=== PATIENT | female | born 2000 | race Caucasian/White ===

== ENCOUNTER 2024-12-21 16:47 | Emergency (ER) | payer BC ==
[2024-12-21 17:27] VITALS: RESP 16; TEMP 96.8
[2024-12-21] MEDS ORDERED: ZOFRAN ODT 4 MG ONE (17:28)
[2024-12-21] MEDS: ZOFRAN ODT 4 MG PO ONE (17:29)
[2024-12-21 17:49] LABS: Appearance Clear (Clear); Bacteria Rare /HPF (None Seen); Bilirubin Negative (Negative); Blood Negative (Negative); Epithelial Cells Few /HPF (None Seen); Glucose, Urine Negative (Negative); Ketones Trace (Negative); Leukocyte Esterase Trace (Negative); Nitrite Negative (Negative); Protein,Urine Dip Trace (Negative); RBC 0-2 /HPF (0-5); Specific Gravity 1.025 (1.005-1.030)
[2024-12-21 17:54] LABS: HCG URINE TEST NEGATIVE (NEGATIVE)
[2024-12-21] MEDS: Zofran 4 MG/2 ML VIAL IV ONE (18:03)
[2024-12-21] MEDS ORDERED: Sodium Chloride 0.9% 1000 ML 1,000 ML ONE (18:03)
[2024-12-21] MEDS: Sodium Chloride 0.9% 1000 ML 1,000 ML IV STA (18:04)
[2024-12-21 18:06] LABS: Absolute Neutrophil Ct (ANC) 8.38 x10^3/uL (1.56-6.13); BASOPHIL % 0.2 % (0.1-1.2); Basophil (Absolute #) 0.02 x10^3/uL (0.01-0.08); Eosinophil (Absolute #) 0 x10^3/uL (0.04-0.36); Hematocrit 40.4 % (34.1-44.9); Hemoglobin 14.1 g/dL (11.2-15.7); IMMATURE GRAN # 0.02 x10^3u/L (0.001-0.031); IMMATURE GRAN % 0.2 % (0.001-0.429); Lymphocyte (Absolute #) 1.31 x10^3/uL (1.18-3.74); Mean Cell Volume 86.5 fL (79.4-94.8); Mean Corpuscular Hemoglobin 30.2 pg (25.6-32.2); Mean Corpuscular Hgb Concent. 34.9 g/dL (32.2-35.5); Mean Platelet Volume 9.9 fL (9.4-12.3); Monocyte (Absolute #) 0.35 x10^3/uL (0.24-0.86); Monocytes % 3.5 % (4.7-12.5); Neutrophil % 83.1 % (34.0-71.1); Platelet Count 243 x10^3/uL (182-369); Red Blood Count 4.67 x10^6/uL (3.93-5.22); Red Cell Distribution Width 11.4 % (11.7-14.4); White Blood Count 10.1 x10^3/uL (3.98-10.04)
[2024-12-21 18:33] LABS: ALBUMIN 5.3 g/dL (3.5-5.0); ANION GAP 15.8 MEQ/L (5-15); BILIRUBIN,TOTAL 0.7 mg/dL (0.2-1.3); Calcium 9.8 mg/dL (8.4-10.2); Creatinine 1 0.78 mg/dL (0.52-1.04); EST GLOMERULAR FILTRATION RATE 110.1 ML/MIN; Total Protein 7.9 g/dL (6.3-8.2)
[2024-12-21 19:06] VITALS: BP 115/78; PULSE 65; O2SAT 99
--- NOTE | 2024-12-21 19:11 | ERPHSYRPT ---
- History of Present Illness Time Seen by Provider: 12/21/24 19:07 Source: patient Exam Limitations: no limitations Patient Subjective Stated Complaint: pt states that she has been vomiting up acid. pt states that she has an appointment with the [facility] on the . Triage Nursing Assessment: pt ambulated into the er; pt is axo x4; c/o vomiting; pt states 3/10 pain to upper back; abd flat, soft, non tender; active bowel sounds in all quads; c/o N/V, denies diarrhea; skin PDW; no respiratory distress present; vitals wnl Physician History: Patient is a 24-year-old female presents to our ED for evaluation of nausea and vomiting. Patient states is not uncommon for her to experience episodes of nausea and vomiting. Patient states has been vomiting gastric acid. (Patient is currently on Protonix ) she is currently scheduled to follow-up with Dr. Ziegler for these episodes. Patient vomited approximately 10 times prior to arrival. Patient is here for concerns of dehydration and electrolyte abnormality. No active nausea or vomiting during my evaluation. Patient has some mid back discomfort that is not uncommon when she vomits. She otherwise feels well. No abdominal pain. No fever no rash no respiratory complaints. Mother at bedside states patient is otherwise healthy. They voiced no other complaints or concerns at this time. Patient declined pain medication Portions of this note were created with voice recognition technology. There may be grammatical, spelling, punctuation or sound alike errors Timing/Duration: today Severity: moderate Modifying Factors: Improves With: nothing Associated Symptoms: denies symptoms Allergies/Adverse Reactions: No Known Drug Allergies Allergy (Verified 12/21/24 17:01) Home Medications: Escitalopram Oxalate 20 mg PO HS 12/21/24 [History] PANTOPRAZOLE 40 mg Tablet [Protonix 40MG Tablet] 40 mg PO BID 12/21/24 [History] Hx Tetanus, Diphtheria Vaccination/Date Given: Yes Hx Influenza Vaccination/Date Given: No Hx Pneumococcal Vaccination/Date Given: No Travel Risk - International Travel Have you traveled outside of the country in past 3 weeks: No - Emerging Infectious Disease Are you exhibiting symptoms associated with any current EIDs: Yes Symptoms: Vomitting - Review of Systems Constitutional: No Symptoms, No Fever, No Chills Eyes: No Symptoms Ears, Nose, & Throat: No Symptoms Respiratory: No Symptoms, No Cough, No Dyspnea Cardiac: No Symptoms, No Chest Pain, No Edema, No Syncope Abdominal/Gastrointestinal: No Symptoms, No Abdominal Pain, No Nausea, No Vomiting, No Diarrhea Genitourinary Symptoms: No Symptoms, No Dysuria Musculoskeletal: No Symptoms, No Back Pain, No Neck Pain Skin: No Symptoms, No Rash Neurological: No Symptoms, No Dizziness, No Focal Weakness, No Sensory Changes Psychological: No Symptoms Endocrine: No Symptoms Hematologic/Lymphatic: No Symptoms Immunological/Allergic: No Symptoms All Other Systems: Reviewed and Negative - Past Medical History Pertinent Past Medical History: Yes GI Medical History: GERD Psycho-Social History: Depression - Past Surgical History Past Surgical History: Yes Other Surgical History: tonsils - Female History Hx Now: No - Social History Smoking Status: Light tobacco smoker Exposure to second hand smoke: No Drug Use: none - Nursing Vital Signs Nursing Vital Signs: Initial Vital Signs Pulse Rate 64 12/21/24 17:00 Blood Pressure 119/80 12/21/24 17:00 O2 Sat by Pulse Oximetry 98 12/21/24 17:00 Pain Scale Pain Intensity 3 - Physical Exam General Appearance: no apparent distress, alert Eye Exam: PERRL/EOMI, eyes nml inspection Ears, Nose, Throat Exam: normal ENT inspection, TMs normal, pharynx normal, moist mucous membranes Neck Exam: normal inspection, non-tender, supple, full range of motion Respiratory Exam: normal breath sounds, lungs clear, No respiratory distress Cardiovascular Exam: regular rate/rhythm, normal heart sounds, normal peripheral pulses Gastrointestinal/Abdomen Exam: soft, normal bowel sounds, No tenderness, No mass Back Exam: normal inspection, normal range of motion, No CVA tenderness, No vertebral tenderness Extremity Exam: normal inspection, normal range of motion, pelvis stable Neurologic Exam: alert, oriented x 3, cooperative, normal mood/affect, sensation nml, No motor deficits Skin Exam: normal color, warm, dry, No rash Lymphatic Exam: No adenopathy SpO2 Interpretation: normal SpO2: 99 O2 Delivery: Room Air - Course Nursing assessment & vital signs reviewed: Yes Ordered Tests: Active Orders 24 hr Category Date Time Status IV Insertion STAT Care 12/21/24 17:41 Active CBC W DIFF Stat Lab 12/21/24 18:05 Completed CMP Stat Lab 12/21/24 18:05 Completed CULTURE,URINE Stat Lab 12/21/24 17:27 Received HCG QUALITATIVE, URINE Stat Lab 12/21/24 17:27 Completed LIPASE Stat Lab 12/21/24 18:05 Completed UA W/RFX UR CULTURE Stat Lab 12/21/24 17:27 Completed Medication Summary Discontinued Medications Generic Name Dose Route Start Last Admin Trade Name Edward PRN Reason Stop Dose Admin Sodium Chloride 1,000 mls @ 999 mls/hr 12/21/24 17:41 12/21/24 19:06 Sodium Chloride 0.9% 1000 Ml IV 12/21/24 18:41 Infused .Q1H1M STA Infusion Sodium Chloride Confirm 12/21/24 18:03 Sodium Chloride 0.9% 1000 Ml Administered 12/21/24 18:04 Dose 1,000 mls @ ud .ROUTE .STK-MED ONE Ondansetron HCl 4 mg 12/21/24 17:24 12/21/24 17:29 Zofran 4 Mg/Udtablet Orally Disintegrating PO 12/21/24 17:25 4 mg STAT ONE Administration Ondansetron HCl Confirm 12/21/24 17:28 Zofran 4 Mg/Udtablet Orally Disintegrating Administered 12/21/24 17:29 Dose 4 mg .ROUTE .STK-MED ONE Ondansetron HCl 4 mg 12/21/24 17:41 12/21/24 18:03 Ondansetron Hcl 4 Mg/2 Ml Vial IV 12/21/24 17:42 Not Given STAT ONE Lab/Rad Data: Laboratory Result Diagrams 12/21/24 18:05 12/21/24 18:05 Laboratory Results 12/21/24 12/21/24 12/21/24 Range/Units 18:05 18:05 17:27 WBC 10.1 H (3.98-10.04) x10^3/uL RBC 4.67 (3.93-5.22) x10^6/uL Hgb 14.1 (11.2-15.7) g/dL Hct 40.4 (34.1-44.9) % MCV 86.5 (79.4-94.8) fL MCH 30.2 (25.6-32.2) pg MCHC 34.9 (32.2-35.5) g/dL RDW 11.4 L (11.7-14.4) % Plt Count 243 (182-369) x10^3/uL MPV 9.9 (9.4-12.3) fL Gran % 83.1 H (34.0-71.1) % Immature Gran % (Auto) 0.2 (0.001-0.429) % Nucleat RBC Rel Count 0.0 (0.00-0.2) % Eos # (Auto) 0 L (0.04-0.36) x10^3/uL Immature Gran # (Auto) 0.02 (0.001-0.031) x10^3u/L Absolute Lymphs (auto) 1.31 (1.18-3.74) x10^3/uL Absolute Monos (auto) 0.35 (0.24-0.86) x10^3/uL Absolute Nucleated RBC 0.00 (0.00-0.012) x10^3u/L Lymphocytes % 13.0 L (19.3-51.7) % Monocytes % 3.5 L (4.7-12.5) % Eosinophils % 0.0 L (0.7-5.8) % Basophils % 0.2 (0.1-1.2) % Absolute Granulocytes 8.38 H (1.56-6.13) x10^3/uL Basophils # 0.02 (0.01-0.08) x10^3/uL Sodium 140 (135-145) mmol/L Potassium 4.0 (3.5-5.1) mmol/L Chloride 103 (98-107) mmol/L Carbon Dioxide 25 (22-30) mmol/L Anion Gap 15.8 H (5-15) MEQ/L BUN 12 (7-17) mg/dL Creatinine 0.78 (0.52-1.04) mg/dL Estimated GFR 110.1 ML/MIN Glucose 92 (74-106) mg/dL Calcium 9.8 (8.4-10.2) mg/dL Total Bilirubin 0.70 (0.2-1.3) mg/dL AST 28 (14-36) U/L ALT 26 (0-35) U/L Alkaline Phosphatase 64 (38-126) U/L Serum Total Protein 7.9 (6.3-8.2) g/dL Albumin 5.3 H (3.5-5.0) g/dL Lipase 60 (23-300) U/L Urine Color (Yellow) Urine Appearance (Clear) Urine pH (4.6-8.0) Ur Specific [place] (1.005-1.030) Urine Protein (Negative) Urine Glucose (UA) (Negative) mg/dL Urine Ketones (Negative) Urine Blood (Negative) Urine Nitrite (Negative) Urine Bilirubin (Negative) Urine Urobilinogen (0.2) mg/dL Ur Leukocyte Esterase (Negative) U Hyaline Cast (Auto) (0-2) /LPF Urine Microscopic RBC (0-5) /HPF Urine Microscopic WBC (0-5) /HPF Ur Epithelial Cells (None Seen) /HPF Urine Bacteria (None Seen) /HPF Urine Culture Reflexed (NO) Urine HCG, Qual NEGATIVE (NEGATIVE) 12/21/24 Range/Units 17:27 WBC (3.98-10.04) x10^3/uL RBC (3.93-5.22) x10^6/uL Hgb (11.2-15.7) g/dL Hct (34.1-44.9) % MCV (79.4-94.8) fL MCH (25.6-32.2) pg MCHC (32.2-35.5) g/dL RDW (11.7-14.4) % Plt Count (182-369) x10^3/uL MPV (9.4-12.3) fL Gran % (34.0-71.1) % Immature Gran % (Auto) (0.001-0.429) % Nucleat RBC Rel Count (0.00-0.2) % Eos # (Auto) (0.04-0.36) x10^3/uL Immature Gran # (Auto) (0.001-0.031) x10^3u/L Absolute Lymphs (auto) (1.18-3.74) x10^3/uL Absolute Monos (auto) (0.24-0.86) x10^3/uL Absolute Nucleated RBC (0.00-0.012) x10^3u/L Lymphocytes % (19.3-51.7) % Monocytes % (4.7-12.5) % Eosinophils % (0.7-5.8) % Basophils % (0.1-1.2) % Absolute Granulocytes (1.56-6.13) x10^3/uL Basophils # (0.01-0.08) x10^3/uL Sodium (135-145) mmol/L Potassium (3.5-5.1) mmol/L Chloride (98-107) mmol/L Carbon Dioxide (22-30) mmol/L Anion Gap (5-15) MEQ/L BUN (7-17) mg/dL Creatinine (0.52-1.04) mg/dL Estimated GFR ML/MIN Glucose (74-106) mg/dL Calcium (8.4-10.2) mg/dL Total Bilirubin (0.2-1.3) mg/dL AST (14-36) U/L ALT (0-35) U/L Alkaline Phosphatase (38-126) U/L Serum Total Protein (6.3-8.2) g/dL Albumin (3.5-5.0) g/dL Lipase (23-300) U/L Urine Color Dark Yellow A (Yellow) Urine Appearance Clear (Clear) Urine pH 5.0 (4.6-8.0) Ur Specific [place] 1.025 (1.005-1.030) Urine Protein Trace A (Negative) Urine Glucose (UA) Negative (Negative) mg/dL Urine Ketones Trace A (Negative) Urine Blood Negative (Negative) Urine Nitrite Negative (Negative) Urine Bilirubin Negative (Negative) Urine Urobilinogen 1.0 A (0.2) mg/dL Ur Leukocyte Esterase Trace A (Negative) U Hyaline Cast (Auto) 3-5 A (0-2) /LPF Urine Microscopic RBC 0-2 (0-5) /HPF Urine Microscopic WBC 3-5 (0-5) /HPF Ur Epithelial Cells Few (None Seen) /HPF Urine Bacteria Rare A (None Seen) /HPF Urine Culture Reflexed YES (NO) Urine HCG, Qual (NEGATIVE) - Progress Progress: improved Progress Note: 24-year-old female presents to our ED for evaluation of nausea and vomiting. Physical exam otherwise unremarkable. Workup reveals some dehydration. IV fluids administered. Patient received Zofran as well. Patient reassessed. Patient states she feels much better. Nausea resolved. Patient tolerated p.o. No vomiting. Patient dates she is ready for discharge. A prescription for Zofran forwarded to patient's pharmacy. Patient will follow-up with Dr. Ziegler on the of this month as scheduled. Patient states she is ready for discharge and voices no other complaints or concerns at this time. Portions of this note were created with voice recognition technology. There may be grammatical, spelling, punctuation or sound alike errors Complexity of problem addressed is moderate acute complicated. No critical care time. Complexity of data reviewed and analyzed as moderate. Test ordered test reviewed results analyzed and correlated clinically with history and physical exam. Risk of complication and/or risk of morbidity/mortality of patient management is moderate. A prescription for Zofran forwarded to patient's pharmacy. Vital stable. Time spent to discharge patient is approximately 10 minutes. Plan of care established for shared decision making. No social determinants of health present to impede follow-up. Portions of this note were created with voice recognition technology. There may be grammatical, spelling, punctuation or sound alike errors 12/21/24 19:16 Counseled pt/family regarding: lab results, diagnosis, need for follow-up Medical Desision Making - Independent Historian Additional History obtained from: Mother - Diagnostic Testing Diagnostic test were ordered, analyzed, and reviewed by me: Yes - Risk of complications The pt has a mod risk of morbidity or mortality based on: Need for prescription drug management - Departure Departure Disposition: Home Clinical Impression: Nausea and vomiting, Dehydration Condition: Stable Critical Care Time: No Referrals: JODI SHABAZZ PA [Primary Care Provider] - Follow up/PCP as directed Additional Instructions: Discharge/Care Plan MACK GIBSON was seen on 12/21/24 in the Emergency Room. The patient was counseled regarding Diagnosis,Lab results, Imaging studies, need for follow up and when to return to the Emergency Room. Prescriptions given: Discharge Note I have spoken with the patient and/or caregivers. I have explained the patient's condition, diagnosis and treatment plan based on the information available to me at this time. I have answered the patient's and/or caregiver's questions and addressed any concerns. The patient and/or caregivers have as good understanding of the patient's diagnosis, condition and treatment plan as can be expected at this point. The vital signs have been stable. The patient's condition is stable and appropriate for discharge from the emergency department. The patient will pursue further outpatient evaluation with the primary care physician or other designated or consulting physician as outlined in the discharge instructions. The patient and/or caregivers are agreeable to this plan of care and follow-up instructions have been explained in detail. The patient and/or caregivers have received these instruction. The patient/and or caregivers are aware that any significant change in condition or worsening of symptoms should prompt an immediate return to this or the closest emergency department or call 911. Prescriptions: Ondansetron ODT 4 MG [Zofran Odt 4 mg] 4 mg PO Q6H PRN PRN #10 tablet PRN Reason: Vomiting
== END 2024-12-21 19:23 | disposition home or self-care (01) ==
LOC: ED 16:47
DX: R11.2 Nausea with vomiting, unspecified (principal); E86.0 Dehydration; Z79.899 Other long term (current) drug therapy; Z72.0 Tobacco use
CPT/HCPCS: 36415; 80053; 81001; 81025; 83690; 85025; 87086; 96360; 99283; 99284; Q0162